=== PATIENT | male | born 1965 | race Caucasian/White ===

== ENCOUNTER → 2023-03-18 | Outpatient (CLI) | payer BC, OTHER | LOC: M RAD 12:40 | PROVIDERS: ATTEND Physician Assistant Medical | DX: Z12.2 Encounter for screening for malignant neoplasm of respiratory organs (principal); F17.200 Nicotine dependence, unspecified, uncomplicated; R59.0 Localized enlarged lymph nodes ==

== ENCOUNTER → 2023-04-14 | Day surgery (SDC) | payer BC, OTHER ==
[~2023-04-14] VITALS: Ht 188 cm; Wt 126.0 kg
[~2023-04-14] MED LIST: ATOR40TA75 PO; FLON1SPR; LIDOCAINE 2% 100MG/5ML SDV (FOR ANES.) As Ordered ONE; METF500T13 PO; NS 1,000 ML IV ONE; PANT20TA6 PO; fentaNYL 100 MCG/2 ML INJECTION As Ordered ONE; propofoL 200 MG/20 ML VIAL As Ordered ONE
[2023-04-14 09:00] VITALS: BP 157/74; TEMP 96.3; O2SAT 98
== END | disposition home or self-care (01) ==
LOC: M OPP 06:43 → EDUNIT# 11:00
PROVIDERS: ATTEND Internal Medicine Gastroenterology
DX: D12.6 Benign neoplasm of colon, unspecified (principal); K57.30 Diverticulosis of large intestine without perforation or abscess without bleeding; K64.8 Other hemorrhoids; J38.3 Other diseases of vocal cords; K21.00 Gastro-esophageal reflux disease with esophagitis, without bleeding; K29.70 Gastritis, unspecified, without bleeding; R12 Heartburn
CPT/HCPCS: 43239; 45385; 88305; J3010

== ENCOUNTER → 2023-05-27 | Outpatient (CLI) | payer BC, OTHER ==
[~2023-05-27] MED LIST changes: +ISOVUE-370 76% 100ML VIAL As Ordered ONE; -LIDOCAINE 2% 100MG/5ML SDV (FOR ANES.) As Ordered ONE; -NS 1,000 ML IV ONE; -fentaNYL 100 MCG/2 ML INJECTION As Ordered ONE; -propofoL 200 MG/20 ML VIAL As Ordered ONE
[2023-05-27 14:27] LABS: BLOOD UREA NITROGEN 20 MG/DL (9-23); GLOMERULAR FILTRATION RATE > 60.0 (>56)
== END ==
LOC: M RAD 12:27
PROVIDERS: ATTEND Otolaryngology
DX: D38.0 Neoplasm of uncertain behavior of larynx (principal)
CPT/HCPCS: 36415; 70491; 82565; 84520; Q9967

== ENCOUNTER 2023-06-03 10:59 | Inpatient (IN) | payer BC, OTHER ==
[~2023-06-03] VITALS: Ht 188 cm; Wt 103.5 kg
[~2023-06-03 10:59] MED LIST changes: -ISOVUE-370 76% 100ML VIAL As Ordered ONE; +LIDOCAINE W/EPINEPHRINE 1% 20ML VIAL As Ordered ONE; +OXYMETAZOLINE 0.05% NASAL SPRAY (AFRIN) As Ordered ONE
[2023-06-03] MEDS ORDERED: LR 1,000 ML IV SCH ×2 (11:10→17:50)
[2023-06-03 11:46] LABS: HEMATOCRIT 48.9 % (42.0-52.0); HEMOGLOBIN 16.7 g/dl (13.5-17.5); MEAN CORPUSCULAR HEMOGLOBIN 30.5 pg (27.0-33.0); MEAN CORPUSCULAR HGB CONC 34.2 g/dl (32.0-36.5); MEAN CORPUSCULAR VOLUME 89.4 fl (80.0-96.0); PLATELET COUNT, AUTOMATED 239 10^3/uL (150-450); RED BLOOD COUNT 5.47 10^6/uL (4.30-6.10); WHITE BLOOD COUNT 8.9 10^3/uL (4.0-10.0)
[2023-06-03 12:07] LABS: BLOOD UREA NITROGEN 22 MG/DL (9-23); CALCIUM LEVEL 10.6 MG/DL (8.5-10.1); CARBON DIOXIDE LEVEL 26 MMOL/L (20-31); CHLORIDE LEVEL 104 MMOL/L (98-107); CREATININE FOR GFR 0.53 MG/DL (0.70-1.30); GLOMERULAR FILTRATION RATE > 60.0 (>56); GLUCOSE, FASTING 241 MG/DL (60-100); POTASSIUM SERUM 4.6 MMOL/L (3.5-5.1); SODIUM LEVEL 139 MMOL/L (136-145)
[2023-06-03] MEDS ORDERED: INSULIN LISPRO (NovoLOG) PER UNIT SC PRN (12:55)
[2023-06-03] MEDS ORDERED: SUGAMMADEX SODIUM 500 MG/5 ML VIAL (BRIDION) As Ordered ONE (13:28)
[2023-06-03] MEDS ORDERED: LIDOCAINE 2% 100MG/5ML SDV (FOR ANES.) As Ordered ONE (13:28)
[2023-06-03] MEDS ORDERED: ONDANSETRON 4MG 2ML VIAL As Ordered ONE (13:28)
[2023-06-03] MEDS ORDERED: propofoL 200 MG/20 ML VIAL As Ordered ONE ×2 (13:28→13:29)
[2023-06-03] MEDS ORDERED: ROCURONIUM BROMIDE 50MG/5ML VIAL As Ordered ONE ×2 (13:28→15:51)
[2023-06-03] MEDS ORDERED: MIDAZOLAM INJ 2MG/2ML VIAL As Ordered ONE (13:34)
[2023-06-03] MEDS ORDERED: fentaNYL 100 MCG/2 ML INJECTION As Ordered ONE ×2 (13:34→15:32)
[2023-06-03] MEDS ORDERED: ACETAMINOPHEN 1000MG 100ML IV BAG As Ordered ONE (15:07)
[2023-06-03] MEDS ORDERED: oxyCODONE 5MG TAB PO PRN (17:50)
[2023-06-03] MEDS ORDERED: ONDANSETRON 4MG 2ML VIAL IV PRN ×2 (17:50→19:05)
[2023-06-03] MEDS ORDERED: fentaNYL 100 MCG/2 ML INJECTION IV PRN (17:50)
[2023-06-03] MEDS: HYDROMORPHONE HCL 0.5 MG/ 0.5 ML SYRINGE IV PRN ×3 (18:16→19:07)
[2023-06-03] MEDS ORDERED: GLUCOSE 4GM CHEW TABLET PO PRN (19:05)
[2023-06-03] MEDS ORDERED: SALIVA SUBSTITUTE(MOUTHKOTE) BTL MT PRN (19:05)
[2023-06-03] MEDS ORDERED: DEXTROSE 50% 50ML SYRINGE IV PRN (19:05)
[2023-06-03] MEDS ORDERED: GLUCAGON INJ 1MG VIAL SC PRN (19:05)
[2023-06-03] MEDS ORDERED: NICOTINE 14 MG/24 HR TRANSDERMAL TD PRN (19:05)
[2023-06-03 19:27] VITALS: BP 137/102; TEMP 97.3; O2SAT 99
[2023-06-03 20:00] VITALS: O2SAT 99
[2023-06-03 21:00] VITALS: BP 143/88; O2SAT 94; O2SAT 99
[2023-06-03] MEDS: INSULIN LISPRO (NovoLOG) PER UNIT SC SCH (21:11)
[2023-06-03] MEDS: LR 1,000 ML IV SCH (21:12)
[2023-06-03 22:00] VITALS: BP 143/80; O2SAT 92; O2SAT 97
[2023-06-03] MEDS ORDERED: ACETAMINOPHEN 650MG SUPP PR PRN (22:00)
[2023-06-03] MEDS: MORPHINE 2 MG/ML 1ML VIAL IV PRN (22:23)
[2023-06-03 23:00] VITALS: BP 138/87; O2SAT 94
[2023-06-04] VITALS (20 sets, daily range): BP systolic 108–147; BP diastolic 61–83; TEMP 97–98.5; O2SAT 89–96
[2023-06-04] MEDS: INSULIN LISPRO (NovoLOG) PER UNIT SC SCH ×4 (00:06→17:39)
[2023-06-04] MEDS: LR 1,000 ML IV SCH ×2 (03:09→13:11)
[2023-06-04] MEDS: MORPHINE 2 MG/ML 1ML VIAL IV PRN ×6 (03:11→22:07)
[2023-06-04 04:44] LABS: HEMATOCRIT 46.9 % (42.0-52.0); HEMOGLOBIN 15.6 g/dl (13.5-17.5); MEAN CORPUSCULAR HEMOGLOBIN 30.4 pg (27.0-33.0); MEAN CORPUSCULAR HGB CONC 33.3 g/dl (32.0-36.5); MEAN CORPUSCULAR VOLUME 91.2 fl (80.0-96.0); PLATELET COUNT, AUTOMATED 228 10^3/uL (150-450); RED BLOOD COUNT 5.14 10^6/uL (4.30-6.10); WHITE BLOOD COUNT 13.9 10^3/uL (4.0-10.0)
[2023-06-04 05:09] LABS: BLOOD UREA NITROGEN 18 MG/DL (9-23); CALCIUM LEVEL 10.4 MG/DL (8.5-10.1); CARBON DIOXIDE LEVEL 28 MMOL/L (20-31); CHLORIDE LEVEL 102 MMOL/L (98-107); CREATININE FOR GFR 0.61 MG/DL (0.70-1.30); GLOMERULAR FILTRATION RATE > 60.0 (>56); GLUCOSE, FASTING 215 MG/DL (60-100); MAGNESIUM LEVEL 1.8 MG/DL (1.8-2.4); POTASSIUM SERUM 4.7 MMOL/L (3.5-5.1); SODIUM LEVEL 140 MMOL/L (136-145)
[2023-06-04] MEDS: PANTOPRAZOLE 40MG VIAL IV SCH (09:41)
[2023-06-05] VITALS (24 sets, daily range): BP systolic 103–133; BP diastolic 62–77; TEMP 96.8–98.9; O2SAT 85–96
[2023-06-05] MEDS: LR 1,000 ML IV SCH ×2 (00:12→12:55)
[2023-06-05] MEDS: INSULIN LISPRO (NovoLOG) PER UNIT SC SCH ×4 (00:15→18:28)
[2023-06-05] MEDS: MORPHINE 2 MG/ML 1ML VIAL IV PRN ×2 (01:11→04:53)
[2023-06-05] MEDS ORDERED: E-Z-PAQUE 96% w/w SUSP 176GM BTL As Ordered ONE (08:40)
[2023-06-05] MEDS ORDERED: VARIBAR NECTAR 40% w/v 240ML SUSP BTL As Ordered ONE (08:40)
[2023-06-05] MEDS ORDERED: VARIBAR PUDDING 40% w/v 230ML TUBE As Ordered ONE (08:40)
[2023-06-05] MEDS ORDERED: BARIUM SULFATE 700 MG TABLET (E-Z-DISK) As Ordered ONE (08:40)
[2023-06-05] MEDS: PANTOPRAZOLE 40MG VIAL IV SCH (09:15)
[2023-06-05] MEDS ORDERED: KETOROLAC 30 MG/ML 1ML VIAL IV ONE (10:00)
[2023-06-05] MEDS: CHLORHEXIDINE GLUCONATE 0.12 % 15ML UDC (PERIDEX ORAL RINSE) SSP SCH ×2 (12:24→21:22)
[2023-06-05] MEDS: KETOROLAC 30 MG/ML 1ML VIAL IV PRN ×2 (15:30→22:14)
[2023-06-06] VITALS (11 sets, daily range): BP systolic 103–121; BP diastolic 55–70; TEMP 97.3–99.5; O2SAT 88–98
[2023-06-06] MEDS: INSULIN LISPRO (NovoLOG) PER UNIT SC SCH ×4 (00:06→18:16)
[2023-06-06] MEDS: LR 1,000 ML IV SCH (01:51)
[2023-06-06] MEDS: KETOROLAC 30 MG/ML 1ML VIAL IV PRN ×2 (04:50→10:34)
[2023-06-06] MEDS: PANTOPRAZOLE 40MG VIAL IV SCH (09:32)
[2023-06-06] MEDS: CHLORHEXIDINE GLUCONATE 0.12 % 15ML UDC (PERIDEX ORAL RINSE) SSP SCH ×2 (09:32→20:39)
[2023-06-06] MEDS: ATORVASTATIN 20 MG TAB PO SCH (10:28)
[2023-06-06 10:33] LABS: BASO % 0.1 % (0.0-1.0); EOS % 0.1 % (0.0-3.0); HEMATOCRIT 43.7 % (42.0-52.0); LYMPH # 2.1 10^3/uL (1.5-5.0); LYMPH % 13.7 % (24.0-44.0); MEAN CORPUSCULAR HEMOGLOBIN 30.7 pg (27.0-33.0); MEAN CORPUSCULAR HGB CONC 34.3 g/dl (32.0-36.5); MEAN CORPUSCULAR VOLUME 89.4 fl (80.0-96.0); MONO # 1.2 10^3/uL (0.0-0.8); MONO % 7.6 % (2.0-8.0); NEUTROPHILS # 11.9 10^3/uL (1.5-8.5); PLATELET COUNT, AUTOMATED 206 10^3/uL (150-450); RED BLOOD COUNT 4.89 10^6/uL (4.30-6.10); WHITE BLOOD COUNT 15.3 10^3/uL (4.0-10.0)
[2023-06-06 10:59] LABS: BLOOD UREA NITROGEN 18 MG/DL (9-23); CALCIUM LEVEL 9.5 MG/DL (8.5-10.1); CARBON DIOXIDE LEVEL 27 MMOL/L (20-31); CHLORIDE LEVEL 103 MMOL/L (98-107); CREATININE FOR GFR 0.67 MG/DL (0.70-1.30); GLOMERULAR FILTRATION RATE > 60.0 (>56); GLUCOSE, FASTING 182 MG/DL (60-100); POTASSIUM SERUM 3.5 MMOL/L (3.5-5.1); SODIUM LEVEL 138 MMOL/L (136-145)
[2023-06-06] MEDS: oxyCODONE 5MG TAB PO PRN ×2 (15:41→21:50)
[2023-06-06] MEDS: PANTOPRAZOLE 20 MG TAB PO SCH (20:39)
[2023-06-06] MEDS: ACETAMINOPHEN 325MG/10.15ML UDC PO PRN (20:39)
[2023-06-07 06:37] VITALS: BP 111/48; TEMP 97.9; O2SAT 95
[2023-06-07] MEDS: ACETAMINOPHEN 325MG/10.15ML UDC PO PRN ×3 (07:54→18:04)
[2023-06-07] MEDS: INSULIN LISPRO (NovoLOG) PER UNIT SC SCH ×3 (07:55→17:13)
[2023-06-07] MEDS: CHLORHEXIDINE GLUCONATE 0.12 % 15ML UDC (PERIDEX ORAL RINSE) SSP SCH ×2 (07:55→20:55)
[2023-06-07] MEDS: oxyCODONE 5MG TAB PO PRN ×3 (07:56→18:04)
[2023-06-07] MEDS: PANTOPRAZOLE 20 MG TAB PO SCH ×2 (07:56→20:55)
[2023-06-07] MEDS: ATORVASTATIN 20 MG TAB PO SCH (07:57)
[2023-06-07] MEDS: AUGMENTIN 875 MG TAB PO SCH ×2 (13:55→20:55)
[2023-06-07 14:00] VITALS: BP 135/71; TEMP 96.8; O2SAT 94
[2023-06-07] MEDS: metFORMIN (GLUCOPHAGE) 500MG TAB PO SCH (17:13)
[2023-06-07 19:38] VITALS: BP 103/64; TEMP 97.7; O2SAT 91; O2SAT 94
[2023-06-08] MEDS: ACETAMINOPHEN 325MG/10.15ML UDC PO PRN ×4 (00:08→22:40)
[2023-06-08] MEDS: oxyCODONE 5MG TAB PO PRN ×3 (00:09→18:42)
[2023-06-08 05:10] VITALS: BP 109/70; TEMP 97.9; O2SAT 96
[2023-06-08 08:01] LABS: BASO % 0.1 % (0.0-1.0); EOS # 0.1 10^3/uL (0.0-0.5); EOS % 0.8 % (0.0-3.0); HEMATOCRIT 41.7 % (42.0-52.0); HEMOGLOBIN 14.8 g/dl (13.5-17.5); LYMPH # 1.7 10^3/uL (1.5-5.0); LYMPH % 12.8 % (24.0-44.0); MEAN CORPUSCULAR HEMOGLOBIN 31.1 pg (27.0-33.0); MEAN CORPUSCULAR HGB CONC 35.5 g/dl (32.0-36.5); MEAN CORPUSCULAR VOLUME 87.6 fl (80.0-96.0); MONO # 0.9 10^3/uL (0.0-0.8); MONO % 6.8 % (2.0-8.0); NEUTROPHILS # 10.6 10^3/uL (1.5-8.5); NEUTROPHILS % 79.1 % (36.0-66.0); PLATELET COUNT, AUTOMATED 247 10^3/uL (150-450); RED BLOOD COUNT 4.76 10^6/uL (4.30-6.10); WHITE BLOOD COUNT 13.5 10^3/uL (4.0-10.0)
[2023-06-08 08:28] LABS: BLOOD UREA NITROGEN 18 MG/DL (9-23); CALCIUM LEVEL 9.6 MG/DL (8.5-10.1); CARBON DIOXIDE LEVEL 25 MMOL/L (20-31); CHLORIDE LEVEL 100 MMOL/L (98-107); CREATININE FOR GFR 0.62 MG/DL (0.70-1.30); GLOMERULAR FILTRATION RATE > 60.0 (>56); GLUCOSE, FASTING 276 MG/DL (60-100); POTASSIUM SERUM 3.8 MMOL/L (3.5-5.1); SODIUM LEVEL 135 MMOL/L (136-145)
[2023-06-08] MEDS: INSULIN LISPRO (NovoLOG) PER UNIT SC SCH ×3 (10:04→17:14)
[2023-06-08] MEDS: CHLORHEXIDINE GLUCONATE 0.12 % 15ML UDC (PERIDEX ORAL RINSE) SSP SCH ×2 (10:04→21:06)
[2023-06-08] MEDS: ATORVASTATIN 20 MG TAB PO SCH (10:06)
[2023-06-08] MEDS: metFORMIN (GLUCOPHAGE) 500MG TAB PO SCH (10:06)
[2023-06-08] MEDS: AUGMENTIN 875 MG TAB PO SCH (10:06)
[2023-06-08] MEDS: PANTOPRAZOLE 20 MG TAB PO SCH ×2 (10:06→21:06)
[2023-06-08] MEDS: CEFTAROLINE FOSAMIL 600 MG in D5W MINI-BAG PLUS 50 ML IV SCH (13:51)
[2023-06-08] MEDS: LEVEMIR (INSULIN DETEMIR) 1 UNITS/0.01ML SC SCH (13:56)
[2023-06-08 14:00] VITALS: BP 133/72; TEMP 98.1; O2SAT 95
[2023-06-08] MEDS: metroNIDAZOLE 500 MG in IV 1 EA IV SCH ×2 (15:36→22:40)
[2023-06-08 19:49] VITALS: BP 122/69; TEMP 97.9; O2SAT 95
[2023-06-09] MEDS: CEFTAROLINE FOSAMIL 600 MG in D5W MINI-BAG PLUS 50 ML IV SCH ×2 (00:46→12:09)
[2023-06-09] MEDS: oxyCODONE 5MG TAB PO PRN ×4 (00:46→19:47)
[2023-06-09 05:19] VITALS: BP 119/71; TEMP 97.7; O2SAT 96
[2023-06-09] MEDS: metroNIDAZOLE 500 MG in IV 1 EA IV SCH ×3 (05:51→20:55)
[2023-06-09 07:49] LABS: BASO % 0.1 % (0.0-1.0); EOS # 0.2 10^3/uL (0.0-0.5); EOS % 1.4 % (0.0-3.0); HEMATOCRIT 41.1 % (42.0-52.0); HEMOGLOBIN 13.9 g/dl (13.5-17.5); LYMPH # 1.6 10^3/uL (1.5-5.0); LYMPH % 15.4 % (24.0-44.0); MEAN CORPUSCULAR HGB CONC 33.8 g/dl (32.0-36.5); MEAN CORPUSCULAR VOLUME 88.8 fl (80.0-96.0); MONO # 0.8 10^3/uL (0.0-0.8); MONO % 8.1 % (2.0-8.0); NEUTROPHILS # 7.7 10^3/uL (1.5-8.5); NEUTROPHILS % 74.6 % (36.0-66.0); PLATELET COUNT, AUTOMATED 245 10^3/uL (150-450); RED BLOOD COUNT 4.63 10^6/uL (4.30-6.10); WHITE BLOOD COUNT 10.4 10^3/uL (4.0-10.0)
[2023-06-09] MEDS: CHLORHEXIDINE GLUCONATE 0.12 % 15ML UDC (PERIDEX ORAL RINSE) SSP SCH ×2 (08:00→19:47)
[2023-06-09] MEDS: ACETAMINOPHEN 325MG/10.15ML UDC PO PRN ×3 (08:01→19:46)
[2023-06-09] MEDS: INSULIN LISPRO (NovoLOG) PER UNIT SC SCH ×4 (08:01→20:51)
[2023-06-09] MEDS: LEVEMIR (INSULIN DETEMIR) 1 UNITS/0.01ML SC SCH ×2 (08:02→20:51)
[2023-06-09] MEDS: ATORVASTATIN 20 MG TAB PO SCH (08:02)
[2023-06-09] MEDS: PANTOPRAZOLE 20 MG TAB PO SCH ×2 (08:02→19:46)
[2023-06-09 08:19] LABS: BLOOD UREA NITROGEN 15 MG/DL (9-23); CALCIUM LEVEL 9.8 MG/DL (8.5-10.1); CARBON DIOXIDE LEVEL 26 MMOL/L (20-31); CHLORIDE LEVEL 101 MMOL/L (98-107); CREATININE FOR GFR 0.61 MG/DL (0.70-1.30); GLOMERULAR FILTRATION RATE > 60.0 (>56); GLUCOSE, FASTING 329 MG/DL (60-100); POTASSIUM SERUM 3.9 MMOL/L (3.5-5.1); SODIUM LEVEL 136 MMOL/L (136-145)
[2023-06-09] MEDS ORDERED: SENOKOT S TAB PO PRN (09:25)
[2023-06-09 10:21] LABS: HEMOGLOBIN A1c 8.8 % (4.0-6.0)
[2023-06-09] MEDS: LACTOBACILLUS ACIDOPHILUS CAP (BACID) PO SCH (13:39)
[2023-06-09 14:00] VITALS: BP 122/70; TEMP 98.6; O2SAT 96
[2023-06-09 19:23] VITALS: BP 138/75; TEMP 98.1; O2SAT 94
[2023-06-10] MEDS: CEFTAROLINE FOSAMIL 600 MG in D5W MINI-BAG PLUS 50 ML IV SCH ×2 (00:35→12:41)
[2023-06-10] MEDS: ACETAMINOPHEN 325MG/10.15ML UDC PO PRN ×2 (02:56→20:25)
[2023-06-10] MEDS: oxyCODONE 5MG TAB PO PRN (02:57)
[2023-06-10 05:08] VITALS: BP 131/71; TEMP 97.9; O2SAT 94
[2023-06-10] MEDS: metroNIDAZOLE 500 MG in IV 1 EA IV SCH ×3 (05:39→22:03)
[2023-06-10] MEDS: PANTOPRAZOLE 20 MG TAB PO SCH ×2 (08:18→20:23)
[2023-06-10] MEDS: INSULIN LISPRO (NovoLOG) PER UNIT SC SCH ×4 (08:18→20:24)
[2023-06-10] MEDS: LACTOBACILLUS ACIDOPHILUS CAP (BACID) PO SCH (08:18)
[2023-06-10] MEDS: CHLORHEXIDINE GLUCONATE 0.12 % 15ML UDC (PERIDEX ORAL RINSE) SSP SCH ×2 (08:18→20:24)
[2023-06-10] MEDS: ATORVASTATIN 20 MG TAB PO SCH (08:18)
[2023-06-10] MEDS: LEVEMIR (INSULIN DETEMIR) 1 UNITS/0.01ML SC SCH ×2 (08:19→20:24)
[2023-06-10 14:00] VITALS: BP 109/66; TEMP 98.1; O2SAT 97
[2023-06-10 20:00] VITALS: BP 113/65; TEMP 97.7; O2SAT 97
[2023-06-11] MEDS: CEFTAROLINE FOSAMIL 600 MG in D5W MINI-BAG PLUS 50 ML IV SCH (00:40)
[2023-06-11] MEDS: metroNIDAZOLE 500 MG in IV 1 EA IV SCH (05:38)
[2023-06-11 05:54] VITALS: BP 115/67; TEMP 97.7; O2SAT 97
[2023-06-11] MEDS: ATORVASTATIN 20 MG TAB PO SCH (08:02)
[2023-06-11] MEDS: LACTOBACILLUS ACIDOPHILUS CAP (BACID) PO SCH (08:02)
[2023-06-11] MEDS: LEVEMIR (INSULIN DETEMIR) 1 UNITS/0.01ML SC SCH (08:02)
[2023-06-11] MEDS: PANTOPRAZOLE 20 MG TAB PO SCH (08:02)
[2023-06-11] MEDS: INSULIN LISPRO (NovoLOG) PER UNIT SC SCH ×2 (08:03→11:31)
[2023-06-11] MEDS: CHLORHEXIDINE GLUCONATE 0.12 % 15ML UDC (PERIDEX ORAL RINSE) SSP SCH (08:04)
[2023-06-11 08:07] LABS: BASO % 0.2 % (0.0-1.0); EOS # 0.2 10^3/uL (0.0-0.5); EOS % 1.4 % (0.0-3.0); HEMATOCRIT 44.5 % (42.0-52.0); HEMOGLOBIN 15.3 g/dl (13.5-17.5); LYMPH % 19.1 % (24.0-44.0); MEAN CORPUSCULAR HEMOGLOBIN 30.2 pg (27.0-33.0); MEAN CORPUSCULAR HGB CONC 34.4 g/dl (32.0-36.5); MEAN CORPUSCULAR VOLUME 87.8 fl (80.0-96.0); MONO # 0.9 10^3/uL (0.0-0.8); MONO % 8.2 % (2.0-8.0); NEUTROPHILS # 7.2 10^3/uL (1.5-8.5); NEUTROPHILS % 69.9 % (36.0-66.0); PLATELET COUNT, AUTOMATED 325 10^3/uL (150-450); RED BLOOD COUNT 5.07 10^6/uL (4.30-6.10); WHITE BLOOD COUNT 10.4 10^3/uL (4.0-10.0)
[2023-06-11 08:32] LABS: BLOOD UREA NITROGEN 16 MG/DL (9-23); CALCIUM LEVEL 10.3 MG/DL (8.5-10.1); CARBON DIOXIDE LEVEL 26 MMOL/L (20-31); CHLORIDE LEVEL 101 MMOL/L (98-107); CREATININE FOR GFR 0.67 MG/DL (0.70-1.30); GLOMERULAR FILTRATION RATE > 60.0 (>56); GLUCOSE, FASTING 307 MG/DL (60-100); POTASSIUM SERUM 4.2 MMOL/L (3.5-5.1); SODIUM LEVEL 136 MMOL/L (136-145)
[2023-06-11] MEDS ORDERED: BACTRIM 160MG/800MG DS TAB PO SCH (09:00)
[2023-06-11] MEDS ORDERED: RISATAB3 PO (13:39)
[2023-06-11] MEDS ORDERED: BACTDSTA PO (13:39)
[2023-06-17] MEDS ORDERED: METF-838 PO (13:24)
== END 2023-06-11 16:05 | disposition home health service (06) | DRG 98 ==
LOC: M SDC 10:59 → M ED INP 11:00 → M ICU 19:25 → M PCU 06-04 06:18 → OBSVTOIN 06-04 11:51 → M MS5PR 06-06 15:10
PROVIDERS: ADMIT Internal Medicine; ATTEND Student in an Organized Health Care Education/Training Program
PROC: 0CB Mouth and Throat, Excision (ICD-10-PCS; 2023-06-03)
PROC: 0B110F4 Bypass Trachea to Cutaneous with Tracheostomy Device, Open Approach (ICD-10-PCS; principal; 2023-06-03 13:00)
PROC: 0CBT8ZZ Excision of Right Vocal Cord, Via Natural or Artificial Opening Endoscopic (ICD-10-PCS; 2023-06-03 13:00)
DX: C32.2 Malignant neoplasm of subglottis (principal); Z93.0 Tracheostomy status; L03.221 Cellulitis of neck; R13.10 Dysphagia, unspecified; L03.313 Cellulitis of chest wall; E78.5 Hyperlipidemia, unspecified; K21.9 Gastro-esophageal reflux disease without esophagitis; E11.9 Type 2 diabetes mellitus without complications; F17.200 Nicotine dependence, unspecified, uncomplicated

== ENCOUNTER → 2023-06-30 | Outpatient (CLI) | payer BC, OTHER ==
[~2023-06-30] VITALS: Ht 188 cm; Wt 95.0 kg
[~2023-06-30] MED LIST changes: +BACTDSTA PO; +METF-838 PO; +MIDAZOLAM INJ 2MG/2ML VIAL As Ordered ONE; +NS 1,000 ML IV SCH; -OXYMETAZOLINE 0.05% NASAL SPRAY (AFRIN) As Ordered ONE; +RISATAB3 PO; +ceFAZolin 2 GM/D5W 50 ML IV BAG As Ordered ONE; +ceFAZolin SOD 2 GM in IV 1 EA IV ONE; +fentaNYL 100 MCG/2 ML INJECTION As Ordered ONE
[2023-06-30 09:18] VITALS: TEMP 97
[2023-06-30 13:00] VITALS: BP 148/75; O2SAT 94
== END ==
LOC: M IRPRO 09:02
PROVIDERS: ATTEND Specialist
DX: C32.1 Malignant neoplasm of supraglottis (principal)
CPT/HCPCS: 36561; 99152; 99153; J0690; J2250; J3010

== ENCOUNTER → 2023-07-18 | Outpatient (CLI) | payer BC, OTHER ==
[~2023-07-18] MED LIST changes: -LIDOCAINE W/EPINEPHRINE 1% 20ML VIAL As Ordered ONE; -MIDAZOLAM INJ 2MG/2ML VIAL As Ordered ONE; -NS 1,000 ML IV SCH; +ONDA-84 PO; +PROC10TA5 PO; -ceFAZolin 2 GM/D5W 50 ML IV BAG As Ordered ONE; -ceFAZolin SOD 2 GM in IV 1 EA IV ONE; -fentaNYL 100 MCG/2 ML INJECTION As Ordered ONE
== END ==
LOC: M ONCR 07:20
PROVIDERS: ATTEND General Practice
DX: C32.1 Malignant neoplasm of supraglottis (principal); Z93.0 Tracheostomy status; Z71.2 Person consulting for explanation of examination or test findings; Z79.84 Long term (current) use of oral hypoglycemic drugs; Z79.899 Other long term (current) drug therapy; Z87.891 Personal history of nicotine dependence
CPT/HCPCS: 31575; G0463

== ENCOUNTER → 2023-09-02 | Outpatient (RCR) | payer BC, OTHER ==
[~2023-09-02] MED LIST changes: +JARD1TAB PO; +MAGICMW PO; +MAGN400T2 PO; +OXYC1SOL3 PO
== END ==
LOC: M ONCR 08-06 12:30
PROVIDERS: ATTEND General Practice
DX: Z51.0 Encounter for antineoplastic radiation therapy (principal); C32.1 Malignant neoplasm of supraglottis

== ENCOUNTER 2023-09-29 09:16 | Outpatient (RCR) | payer BC, OTHER ==
[~2023-09-29 09:16] MED LIST changes: +DEXA2TA PO; +DEXA4TA PO
== END 2023-10-02 ==
LOC: M ONCR 09:16
PROVIDERS: ATTEND General Practice
DX: Z51.0 Encounter for antineoplastic radiation therapy (principal); C32.1 Malignant neoplasm of supraglottis

== ENCOUNTER → 2023-10-14 | Outpatient (CLI) | payer BC, OTHER ==
[~2023-10-14] MED LIST changes: +DEXA4TA; +METF500T13
== END ==
LOC: M ONCR 08:56
PROVIDERS: ATTEND General Practice
DX: Z01.89 Encounter for other specified special examinations (principal); L59.8 Other specified disorders of the skin and subcutaneous tissue related to radiation

== ENCOUNTER → 2023-12-15 | Outpatient (REF) | payer BC, OTHER ==
[2023-12-15 14:10] LABS: APPEARANCE, URINE CLEAR (CLEAR); BACTERIA, URINE AUTO NEGATIVE (NEGATIVE); BILIRUBIN, URINE AUTO NEGATIVE (NEGATIVE); BLOOD, URINE BLOOD NEGATIVE (NEGATIVE); COLOR, URINE YELLOW (YELLOW); GLUCOSE, URINE (UA) AUTO 3+ mg/dL (NEGATIVE); KETONE, URINE AUTO NEGATIVE (NEGATIVE); LEUKOCYTE ESTERASE, URINE AUTO NEGATIVE (NEGATIVE); NITRITE, URINE AUTO NEGATIVE (NEGATIVE); PROTEIN, URINE AUTO NEGATIVE (NEGATIVE); RBC, URINE AUTO 2 /HPF (0-3); SPECIFIC GRAVITY URINE AUTO 1.024 (1.002-1.035); SQUAMOUS EPITHELIAL CELL UR AU 0 /HPF (0-6); UROBILINOGEN, URINE AUTO 0.2 mg/dL (0.0-2.0); WBC, URINE AUTO 3 /HPF (0-3)
== END ==
LOC: M SMT 12:56
PROVIDERS: ATTEND Nurse Practitioner Family
DX: R31.29 Other microscopic hematuria (principal)

== ENCOUNTER → 2023-12-22 | Outpatient (CLI) | payer BC, OTHER | LOC: M PLARAD 10:39 | PROVIDERS: ATTEND General Practice | DX: C32.1 Malignant neoplasm of supraglottis (principal) | CPT/HCPCS: 78815; A9552 ==

== ENCOUNTER → 2024-01-02 | Outpatient (CLI) | payer BC, OTHER | LOC: M ONCR 09:16 | PROVIDERS: ATTEND General Practice | DX: C32.1 Malignant neoplasm of supraglottis (principal); R93.2 Abnormal findings on diagnostic imaging of liver and biliary tract; Z71.2 Person consulting for explanation of examination or test findings; Z79.52 Long term (current) use of systemic steroids; Z79.84 Long term (current) use of oral hypoglycemic drugs; Z79.899 Other long term (current) drug therapy; Z87.891 Personal history of nicotine dependence; Z92.21 Personal history of antineoplastic chemotherapy; Z92.3 Personal history of irradiation; Z93.0 Tracheostomy status | CPT/HCPCS: 31575; G0463 ==

== ENCOUNTER → 2024-01-12 | Outpatient (CLI) | payer BC ==
[~2024-01-12] MED LIST changes: +ISOVUE-370 76% 100ML VIAL As Ordered ONE
== END ==
LOC: M RAD 13:23
PROVIDERS: ATTEND General Practice
DX: K76.9 Liver disease, unspecified (principal)
CPT/HCPCS: 74170; Q9967

== ENCOUNTER → 2024-04-06 | Outpatient (CLI) | payer BC ==
[~2024-04-06] MED LIST changes: +ERGO500029; -ISOVUE-370 76% 100ML VIAL As Ordered ONE; +TAMS1CAP17
== END ==
LOC: M ONCR 08:44
PROVIDERS: ATTEND General Practice
DX: Z08 Encounter for follow-up examination after completed treatment for malignant neoplasm (principal); Z85.21 Personal history of malignant neoplasm of larynx; Z87.891 Personal history of nicotine dependence; Z79.52 Long term (current) use of systemic steroids; Z79.899 Other long term (current) drug therapy; Z71.2 Person consulting for explanation of examination or test findings; Z79.84 Long term (current) use of oral hypoglycemic drugs; Z93.0 Tracheostomy status; Z92.21 Personal history of antineoplastic chemotherapy; Z92.3 Personal history of irradiation
CPT/HCPCS: 31575; G0463

== ENCOUNTER → 2024-04-28 | Outpatient (CLI) | payer BC ==
[~2024-04-28] VITALS: Ht 188 cm; Wt 90.9 kg
[~2024-04-28] MED LIST changes: +LIDOCAINE 1% MDV 20ML VIAL As Ordered ONE; +LIDOCAINE W/EPINEPHRINE 1% 20ML VIAL As Ordered ONE; +ceFAZolin 2 GM/D5W 50 ML IV BAG As Ordered ONE
[2024-04-28 15:00] VITALS: TEMP 97.6
[2024-04-28] MEDS: ceFAZolin SOD 2 GM in IV 1 EA IV ONE (15:31)
[2024-04-28] MEDS: NS 1,000 ML IV SCH (15:31)
[2024-04-28 16:18] VITALS: BP 148/92; O2SAT 98
== END ==
LOC: M IRPRO 14:39
PROVIDERS: ATTEND Specialist
DX: C32.9 Malignant neoplasm of larynx, unspecified (principal)
CPT/HCPCS: 36589; J0690

== ENCOUNTER → 2024-07-07 | Outpatient (CLI) | payer BC ==
[~2024-07-07] MED LIST changes: -LIDOCAINE 1% MDV 20ML VIAL As Ordered ONE; -LIDOCAINE W/EPINEPHRINE 1% 20ML VIAL As Ordered ONE; -ceFAZolin 2 GM/D5W 50 ML IV BAG As Ordered ONE
== END ==
LOC: M ONCR 09:03
PROVIDERS: ATTEND General Practice
DX: C32.1 Malignant neoplasm of supraglottis (principal); Z79.52 Long term (current) use of systemic steroids; Z79.84 Long term (current) use of oral hypoglycemic drugs; Z79.899 Other long term (current) drug therapy; Z87.891 Personal history of nicotine dependence; Z92.21 Personal history of antineoplastic chemotherapy
CPT/HCPCS: 31575; G0463

== ENCOUNTER → 2024-07-20 | Outpatient (REF) | payer BC, OTHER ==
[2024-07-20 13:48] LABS: APPEARANCE, URINE HAZY (CLEAR); BACTERIA, URINE AUTO NEGATIVE (NEGATIVE); BILIRUBIN, URINE AUTO NEGATIVE (NEGATIVE); BLOOD, URINE BLOOD NEGATIVE (NEGATIVE); CALCIUM OXALATE CRYSTALS SMALL; COLOR, URINE YELLOW (YELLOW); GLUCOSE, URINE (UA) AUTO 3+ mg/dL (NEGATIVE); KETONE, URINE AUTO NEGATIVE (NEGATIVE); LEUKOCYTE ESTERASE, URINE AUTO NEGATIVE (NEGATIVE); MUCUS, URINE SMALL (NEGATIVE); NITRITE, URINE AUTO NEGATIVE (NEGATIVE); PROTEIN, URINE AUTO NEGATIVE (NEGATIVE); RBC, URINE AUTO 0 /HPF (0-3); SPECIFIC GRAVITY URINE AUTO 1.021 (1.002-1.035); SQUAMOUS EPITHELIAL CELL UR AU 0 /HPF (0-6); UROBILINOGEN, URINE AUTO 0.2 mg/dL (0.0-2.0); WBC, URINE AUTO 0 /HPF (0-3)
== END ==
LOC: M SMT 12:49
PROVIDERS: ATTEND Nurse Practitioner Family
DX: R31.29 Other microscopic hematuria (principal)

== ENCOUNTER → 2024-10-04 | Outpatient (CLI) | payer BC ==
[~2024-10-04] MED LIST changes: +ISOVUE-370 76% 100ML VIAL As Ordered ONE
== END ==
LOC: M RAD 07:19
PROVIDERS: ATTEND General Practice
DX: C32.1 Malignant neoplasm of supraglottis (principal)
CPT/HCPCS: 70491; 71260; Q9967

== ENCOUNTER → 2024-10-07 | Outpatient (CLI) | payer BC ==
[~2024-10-07] MED LIST changes: -ISOVUE-370 76% 100ML VIAL As Ordered ONE
== END ==
LOC: M ONCR 09:03
PROVIDERS: ATTEND General Practice
DX: C32.1 Malignant neoplasm of supraglottis (principal); Z87.891 Personal history of nicotine dependence; Z92.3 Personal history of irradiation; Z92.21 Personal history of antineoplastic chemotherapy; Z93.0 Tracheostomy status; Z79.84 Long term (current) use of oral hypoglycemic drugs; Z79.899 Other long term (current) drug therapy

== ENCOUNTER → 2024-12-28 | Outpatient (CLI) | payer BC ==
[~2024-12-28] MED LIST changes: +NYST-38 PO
== END ==
LOC: M RAD 10:17
PROVIDERS: ATTEND General Practice
DX: C32.1 Malignant neoplasm of supraglottis (principal)

== ENCOUNTER → 2025-01-05 | Outpatient (CLI) | payer BC | LOC: M ONCR 08:11 | PROVIDERS: ATTEND General Practice | DX: C32.1 Malignant neoplasm of supraglottis (principal); L59.8 Other specified disorders of the skin and subcutaneous tissue related to radiation; Z92.21 Personal history of antineoplastic chemotherapy; Z92.3 Personal history of irradiation; Z79.52 Long term (current) use of systemic steroids; Z79.899 Other long term (current) drug therapy ==

== ENCOUNTER → 2025-07-05 | Outpatient (CLI) | payer BC ==
[~2025-07-05] MED LIST changes: +ATOR80TA59 PO; -ERGO500029; +ERGO500029 PO; +ISOVUE-370 76% 100 ML VIAL As Ordered ONE; -METF500T13; +PANT40TA29 PO; -TAMS1CAP17; +TAMS1CAP17 PO
== END ==
LOC: M RAD 09:49
PROVIDERS: ATTEND General Practice
DX: C32.1 Malignant neoplasm of supraglottis (principal)
CPT/HCPCS: 70491; 71260; Q9967

== ENCOUNTER → 2025-07-15 | Outpatient (CLI) | payer BC ==
[~2025-07-15] MED LIST changes: -ISOVUE-370 76% 100 ML VIAL As Ordered ONE
[2025-07-15 10:58] LABS: FREE T4 1.28 NG/DL (0.89-1.76)
== END ==
LOC: M ONCR 07:40
PROVIDERS: ATTEND General Practice
DX: C32.1 Malignant neoplasm of supraglottis (principal); Z87.891 Personal history of nicotine dependence; Z92.21 Personal history of antineoplastic chemotherapy; Z92.3 Personal history of irradiation; Z79.84 Long term (current) use of oral hypoglycemic drugs; Z79.899 Other long term (current) drug therapy; Z93.0 Tracheostomy status
CPT/HCPCS: 31575; 36415; 84439; 84443; G0463

== ENCOUNTER 2025-07-19 07:28 | Day surgery (SDC) | payer BC ==
[~2025-07-19] VITALS: Ht 188 cm; Wt 88.9 kg
[2025-07-19] MEDS ORDERED: LIDOCAINE 2% 100 MG/5 ML SDV (FOR ANES.) As Ordered ONE (08:16)
[2025-07-19] MEDS ORDERED: dexAMETHasone 4 MG/ML 1 ML VIAL As Ordered ONE (08:16)
[2025-07-19] MEDS ORDERED: ONDANSETRON 4MG 2ML VIAL As Ordered ONE (08:16)
[2025-07-19] MEDS ORDERED: LR 1,000 ML IV SCH (08:20)
[2025-07-19] MEDS ORDERED: SUGAMMADEX SODIUM 500 MG/5 ML VIAL As Ordered ONE (09:07)
[2025-07-19] MEDS ORDERED: MIDAZOLAM INJ 2 MG/2 ML VIAL As Ordered ONE (09:07)
[2025-07-19] MEDS ORDERED: ROCURONIUM BROMIDE 50MG/5ML VIAL As Ordered ONE (09:07)
[2025-07-19] MEDS ORDERED: SUCCINYLCHOLINE 100MG/5ML SYRINGE As Ordered ONE (09:19)
[2025-07-19] MEDS ORDERED: ACETAMINOPHEN 1000MG/100ML IV BAG As Ordered ONE (10:32)
[2025-07-19] MEDS: PHENYLEPHRINE REG/STR 0.5% NASAL SPRAY 15 ML As Ordered ONE (11:28)
[2025-07-19] MEDS: metroNIDAZOLE/NACL 500 MG (5 MG/ML) 100 ML BAG As Ordered ONE (11:43)
[2025-07-19] MEDS: LIDOCAINE W/EPINEPHrine 1% 20 ML VIAL As Ordered ONE (12:00)
[2025-07-19] MEDS ORDERED: PHENYLephrine 500MCG 5ML (100MCG/ML) SYRINGE As Ordered ONE (12:00)
[2025-07-19] MEDS ORDERED: ONDANSETRON 4MG 2ML VIAL IV PRN (13:00)
[2025-07-19] MEDS ORDERED: MORPHINE 4 MG/ML 1 ML VIAL IV PRN (13:00)
[2025-07-19 14:14] VITALS: BP 148/88; TEMP 97.2; O2SAT 98
== END 2025-07-19 14:14 | disposition home or self-care (01) ==
LOC: M SDC 07:28
PROVIDERS: ATTEND Otolaryngology
DX: J95.04 Tracheo-esophageal fistula following tracheostomy (principal); Z85.21 Personal history of malignant neoplasm of larynx; E78.5 Hyperlipidemia, unspecified; E11.9 Type 2 diabetes mellitus without complications; Z92.21 Personal history of antineoplastic chemotherapy; Z92.3 Personal history of irradiation; K21.9 Gastro-esophageal reflux disease without esophagitis; Z79.899 Other long term (current) drug therapy; Z79.84 Long term (current) use of oral hypoglycemic drugs
CPT/HCPCS: 31825; J0131; J0330; J0690; J1100; J1836; J2250; J2371; J2405; J3010